=== PATIENT | female | born 1990 | race Caucasian/White ===

== ENCOUNTER 2017-01-23 09:51 | Emergency (ER) | payer BC, OTHER ==
[~2017-01-23] VITALS: Ht 160 cm; Wt 67.0 kg
[~2017-01-23 09:51] MED LIST: DICL75 PO; META800 PO
[2017-01-23 09:56] VITALS: BP 131/90; PULSE 78; RESP 16; TEMP 99.9; O2SAT 100
[2017-01-23] MEDS ORDERED: BIRTH CONTROL PILL (10:47)
[2017-01-23] MEDS ORDERED: IBUP-232 PO (11:31)
[2017-01-23] MEDS ORDERED: ROBA750T PO (11:31)
--- NOTE | 2017-01-23 11:38 | PD ---
HPI Chief Complaint: Musculoskeletal Complaint Time Seen by Provider: 11:14 Travel History International Travel<30 days: No Contact w/Intl Traveler<30days: No Traveled to known affect area: No History of Present Illness HPI 26-year-old female presents to the emergency room for evaluation of right-sided low back pain radiating down the right lower extremity for the past 2 days. Patient states she slipped on a wet floor at a restaurant and fell backwards landing directly on her buttocks. She denies any other injuries. She has been able to ambulate with pain since then. She's been taking [id number] ibuprofen without significant relief. She reports right thigh paresthesias that lasted the entire night after the night of injury but none since. No loss of bowel or bladder control or saddle anesthesia. No chronic medical conditions. PFSH Past Medical History Cancer: No Cardiovascular Problems: No Diabetes: No Glaucoma: No Hepatitis: No Hiatal Hernia: No Hypertension: No Respiratory: No Immunizations Current: Yes Thyroid Disease: No ?: Not LMP: DEPO Past Surgical History Abdominal Surgery: No Cardiac Surgery: No Ear Surgery: No Endocrine Surgery: No Eye Surgery: No Genitourinary Surgery: No Gynecologic Surgery: No Neurologic Surgery: No Oral Surgery: No Pacemaker: No Thoracic Surgery: No Tonsillectomy: Yes Other Surgery: No Social History Alcohol Use: Yes (OCCASSIONALLY) Tobacco Use: No Substance Use: No Allergies-Medications (Allergen,Severity, Reaction): Coded Allergies: amoxicillin (Unverified Allergy, Mild, HIVES, 01/23/17) Reported Meds & Prescriptions Reported Meds & Active Scripts Active Ibuprofen 600 Mg Tab 600 Mg PO Q8HR PRN Robaxin (Methocarbamol) 750 Mg Tab 750 Mg PO Q8HR Reported [ Control Pill] Review of Systems Except as stated in HPI: all other systems reviewed are Neg Physical Exam Narrative GENERAL: Well-nourished, well-developed female in no acute distress. Afebrile. Ambulatory. Moving easily on the bed. SKIN: Focused skin assessment warm/dry. No erythema or ecchymosis. HEAD: Normocephalic. EYES: No scleral icterus. No injection or drainage. NECK: Supple, trachea midline. No JVD or lymphadenopathy. CARDIOVASCULAR: Regular rate and rhythm without murmurs, gallops, or rubs. RESPIRATORY: Breath sounds equal bilaterally. No accessory muscle use. BACK: Nontender without obvious deformity. No CVA tenderness. Mild right-sided low back tenderness to palpation. 2+ patellar and Achilles reflexes are equal bilaterally. 2+ dorsalis pedis pulse in the right lower extremity. Full range of motion of the right leg. Data Data Last Documented VS Vital Signs Date Time Temp Pulse Resp B/P (MAP) Pulse Ox O2 Delivery O2 Flow Rate FiO2 01/23/17 09:56 99.9 78 16 131/90 (104) 100 MDM Medical Decision Making Medical Screen Exam Complete: Yes Emergency Medical Condition: Yes Medical Record Reviewed: Yes Differential Diagnosis Low back pain, sciatica, muscle spasm, muscle strain Narrative Course 26-year-old female presents to the emergency room for evaluation of right lower back pain radiating to the right lower extremity for the past 2 days. Pain started after slip and fall in which patient fell backwards landing directly on her buttocks. States she is mostly here because she works 2 jobs and it is painful to walk. She reports right thigh paresthesias the night of the accident but none since. She is able to ambulate but with some pain. No focal neurological deficits. No midline tenderness to palpation. Patient is ambulatory and moving easily on the bed. Right lower extremity patellar and Achilles reflexes are equal bilaterally. No indication for emergent imaging at this time. Patient was treated conservatively with ibuprofen and Robaxin. Told to follow-up with her primary care physician if symptoms persist for outpatient imaging or return for worsening symptoms. She understands and agrees to plan. Diagnosis Primary Impression: Sciatica Qualified Codes: M54.31 - Sciatica, right side Referrals: Primary Care Physician Departure Forms: Tests/Procedures, Work Release Enter return to work date: Jan 25, 2017 Additional Instructions: Rest and drink plenty of fluids. Take Robaxin as directed, as needed for pain. Take ibuprofen with food as directed, as needed for pain. Apply ice to the affected area for 20 minutes at a time, as needed for pain and swelling. Follow-up with a primary care physician. Return to the emergency room for worsening symptoms. Med/Other Pt SpecificInfo: Prescription(s) given Scripts Ibuprofen (Ibuprofen) 600 Mg Tab 600 MG PO Q8HR Y for PAIN, #21 TAB 0 Refills Prov: Joey Lane MD 01/23/17 Methocarbamol (Robaxin) 750 Mg Tab 750 MG PO Q8HR for Muscle Spasm, #15 TAB 0 Refills Prov: Joey Lane MD 01/23/17 Disposition: 01 DISCHARGE HOME Condition: Stable Doris Keyes Jan 23, 2017 11:38
== END 2017-01-23 11:49 | disposition home or self-care (01) ==
LOC: PHED 09:51 → PHEFT 11:49
DX: M54.31 Sciatica, right side (principal)
CPT/HCPCS: 99283

== ENCOUNTER 2017-03-23 22:30 | Observation (INO) | payer OTHER ==
[~2017-03-23] VITALS: Ht 160 cm; Wt 65.8 kg
[~2017-03-23 22:30] MED LIST changes: +BIRTH CONTROL PILL; -DICL75 PO; +IBUP-232 PO; -META800 PO; +ROBA750T PO
[2017-03-23 22:36] VITALS: BP 139/87; PULSE 86; RESP 16; TEMP 98.7; O2SAT 99
[2017-03-23] MEDS ORDERED: LIDOCAINE VISCOUS 2% SOLN 15 ML UDC PO ONE (23:00)
[2017-03-23] MEDS ORDERED: ALUMINUM/MAGNESIUM/SIMETH 30 ML CUP PO ONE (23:00)
[2017-03-23] MEDS ORDERED: SODIUM CHLORIDE 0.9% FLUSH 10 ML FLUSH IVF PRN (23:00)
[2017-03-23 23:01] VITALS: O2SAT 99
--- NOTE | 2017-03-23 23:06 | RADRPT ---
EXAM DATE/TIME: 03/23/2017 22:52 [facility] COMPARISON: No previous studies available for comparison. INDICATIONS : Chest pain today. MEDICAL HISTORY : None. SURGICAL HISTORY : ENCOUNTER: Initial ACUITY: 1 day PAIN SCORE: 7/10 LOCATION: Bilateral center of chest. FINDINGS: Portable AP view of the chest demonstrates a normal-sized cardiac silhouette. No effusion, consolidat ion, or pneumothorax is visualized. The bones and soft tissues demonstrate no acute abnormality. CONCLUSION: No acute cardiopulmonary abnormality is identified. Singh Cisse MD on March 23, 2017 at 23:04 Board Certified Radiologist. This report was verified electronically.
--- NOTE | 2017-03-23 23:07 | PD ---
HPI Chief Complaint: Chest Pain Time Seen by Provider: 22:42 Travel History International Travel<30 days: No Contact w/Intl Traveler<30days: No Traveled to known affect area: No History of Present Illness HPI 26-year-old female here for evaluation of epigastric abdominal pain that radiates up into her chest as well as right upper quadrant abdominal pain. Patient describes sharp/burning, worse with eating. The patient reports that she has had this pain for "a while," and has been on several different proton pump inhibitors without improvement in symptoms. She states that the pain became worse tonight than it usually is. She denies fevers or chills. No cough or hemoptysis. No known history of cardiac disease. No family history of cardiac disease. Both the patient's mom and father have history of gallbladder disease requiring cholecystectomy. PFSH Past Medical History Medical History: Denies Significant Hx Cancer: No Cardiovascular Problems: No Diabetes: No Glaucoma: No Hepatitis: No Hiatal Hernia: No Hypertension: No Respiratory: No Immunizations Current: Yes Thyroid Disease: No Tetanus Vaccination: Unknown Influenza Vaccination: No ?: Not LMP: depo no periods Past Surgical History Abdominal Surgery: No Cardiac Surgery: No Ear Surgery: No Endocrine Surgery: No Eye Surgery: No Genitourinary Surgery: No Gynecologic Surgery: No Neurologic Surgery: No Oral Surgery: No Pacemaker: No Thoracic Surgery: No Tonsillectomy: Yes Other Surgery: No Social History Alcohol Use: Yes (OCCASSIONALLY) Tobacco Use: No Substance Use: No Allergies-Medications (Allergen,Severity, Reaction): Coded Allergies: amoxicillin (Unverified Allergy, Mild, HIVES, 03/23/17) Reported Meds & Prescriptions Reported Meds & Active Scripts Active Reported [ Control Pill] Review of Systems Except as stated in HPI: all other systems reviewed are Neg Physical Exam Narrative GENERAL: Well-developed, well-nourished, comfortable, no apparent distress. SKIN: Focused skin assessment warm/dry. No rash. HEAD: Atraumatic. Normocephalic. EYES: Pupils equal and round. No scleral icterus. No injection or drainage. ENT: Mucous membranes pink and moist. NECK: Trachea midline. No JVD. CARDIOVASCULAR: Regular rate and rhythm. RESPIRATORY: No accessory muscle use. Clear to auscultation. Breath sounds equal bilaterally. GASTROINTESTINAL: Abdomen soft, nondistended. Mild epigastric and right upper quadrant tenderness without peritoneal signs. Rest of abdomen is soft and nontender. Normal bowel sounds. No hernias. MUSCULOSKELETAL: No obvious deformities. No clubbing. No cyanosis. No edema. NEUROLOGICAL: Awake and alert. No obvious cranial nerve deficits. Motor grossly within normal limits. Normal speech. PSYCHIATRIC: Appropriate mood and affect; insight and judgment normal. Data Data Last Documented VS Vital Signs Date Time Temp Pulse Resp B/P (MAP) Pulse Ox O2 Delivery O2 Flow Rate FiO2 03/24/17 00:20 94 16 126/77 (93) 97 Room Air 03/23/17 22:36 98.7 Orders Orders Electrocardiogram (03/23/17 22:49) Ckmb (Isoenzyme) Profile (03/23/17 22:49) Complete Blood Count With Diff (03/23/17 22:49) Comprehensive Metabolic Panel (03/23/17 22:49) Magnesium (Mg) (03/23/17 22:49) Prothrombin Time / Inr (Pt) (03/23/17 22:49) Act Partial Throm Time (Ptt) (03/23/17 22:49) Troponin I (03/23/17 22:49) Chest, Single Ap (03/23/17 22:49) Ecg Monitoring (03/23/17 22:49) Bilateral Bp Monitoring (03/23/17 22:49) Iv Access Insert/Monitor (03/23/17 22:49) Oximetry (03/23/17 22:49) Oxygen Administration (03/23/17 22:49) Sodium Chloride 0.9% Flush (Ns Flush) (03/23/17 23:00) Beta Hcg (Quant/Titer) (03/23/17 22:49) Lipase (03/23/17 22:49) Us Abdomen Gallbladder (03/23/17 ) Al-Mag Hy-Si 40-40-4 Mg/Ml Liq (Mag-Al P (03/23/17 23:00) Lidocaine 2% Viscous (Xylocaine 2% Visco (03/23/17 23:00) CKMB (03/23/17 22:58) CKMB% (03/23/17 22:58) Morphine Inj (Morphine Inj) (03/23/17 23:45) Ondansetron Inj (Zofran Inj) (03/23/17 23:45) Labs Laboratory Tests Test 03/23/17 22:58 White Blood Count 7.6 TH/MM3 Red Blood Count 4.31 MIL/MM3 Hemoglobin 13.1 GM/DL Hematocrit 39.2 % Mean Corpuscular Volume 91.0 FL Mean Corpuscular Hemoglobin 30.3 PG Mean Corpuscular Hemoglobin Concent 33.3 % Red Cell Distribution Width 11.7 % Platelet Count 262 TH/MM3 Mean Platelet Volume 8.2 FL Neutrophils (%) (Auto) 48.5 % Lymphocytes (%) (Auto) 44.3 % Monocytes (%) (Auto) 5.0 % Eosinophils (%) (Auto) 1.0 % Basophils (%) (Auto) 1.2 % Neutrophils # (Auto) 3.6 TH/MM3 Lymphocytes # (Auto) 3.4 TH/MM3 Monocytes # (Auto) 0.4 TH/MM3 Eosinophils # (Auto) 0.1 TH/MM3 Basophils # (Auto) 0.1 TH/MM3 CBC Comment DIFF FINAL Differential Comment Prothrombin Time 10.7 SEC Prothromb Time International Ratio 1.0 RATIO Activated Partial Thromboplast Time 27.6 SEC Blood Urea Nitrogen 16 MG/DL Creatinine 0.81 MG/DL Random Glucose 82 MG/DL Total Protein 7.7 GM/DL Albumin 4.2 GM/DL Calcium Level 8.9 MG/DL Magnesium Level 2.2 MG/DL Alkaline Phosphatase 54 U/L Aspartate Amino Transf (AST/SGOT) 13 U/L Alanine Aminotransferase (ALT/SGPT) 30 U/L Total Bilirubin 0.4 MG/DL Sodium Level 137 MEQ/L Potassium Level 3.7 MEQ/L Chloride Level 105 MEQ/L Carbon Dioxide Level 23.9 MEQ/L Anion Gap 8 MEQ/L Estimat Glomerular Filtration Rate 87 ML/MIN Total Creatine Kinase 113 U/L Creatine Kinase MB 0.5 NG/ML Troponin I LESS THAN 0.02 NG/ML Lipase 125 U/L Human Chorionic Gonadotropin, Quant LESS THAN 1 MIU/ML MDM Medical Decision Making Medical Screen Exam Complete: Yes Emergency Medical Condition: Yes Interpretation(s) EKG: Sinus, rate 65, normal axis, normal intervals, no acute ischemic abnormality. Differential Diagnosis GERD, peptic ulcer disease, Mann's esophagus, gastritis, pancreatitis, hepatobiliary disease, ACS, pneumothorax, pericarditis, PE less likely, Boerhaave syndrome unlikely Narrative Course Vital signs show heart rate 86, blood pressure 139/87, pulse ox 99% on room air , oral temp of 98.7F. CBC: WBC 7.6, hemoglobin 13.1, hematocrit 39.2, platelets 362. CMP is unremarkable. Cardiac enzymes are negative. Lipase is 125. Beta hCG is negative. Right upper quadrant ultrasound: CONCLUSION: 1. Cholelithiasis. However, there are no other objective imaging features to indicate acute cholecystitis. The round corner cutter operator did report a positive sonographic Briggs's sign but I cannot confirm this with my own examination. 2. Remainder of the examination is within normal limits. Patient and the patient's mom were made aware of all findings. She was given a dose of morphine and continues to complain of pain. Discussed options of discharging her home with outpatient follow-up with a general surgeon this week vs. admitting her for intractable pain and general surgery consultation as an inpatient. I told her that she was not guaranteed to have a cholecystectomy if she is admitted as there are no signs of cholecystitis. The patient tells me that her pain is severe enough that she cannot go on another day without definitive treatment. She prefers to be admitted so she can at least speak to a general surgeon in the morning about treatment options. As per a recent memorandum sent out by the cardiac monitor technician general surgeons, they do not want to be contacted emergently for cases such as this. Therefore, the patient will be admitted to the medical service for routine consultation with general surgery. Case discussed with hospitalist Dr Espinoza who will admit the patient to her service. Diagnosis Primary Impression: Intractable abdominal pain Additional Impressions: Cholelithiasis Qualified Codes: K80.20 - Calculus of gallbladder without cholecystitis without obstruction Biliary colic Bay Davis MD Mar 23, 2017 23:07
[2017-03-23 23:08] VITALS: BP 142/70
[2017-03-23 23:11] LABS: AUTOMATED NEUTROPHIL # 3.6 TH/MM3 (1.8-7.7); BASOPHIL # 0.1 TH/MM3 (0-0.2); BASOPHIL % 1.2 % (0.0-2.0); EOSINOPHIL # 0.1 TH/MM3 (0-0.4); HEMATOCRIT 39.2 % (35.0-46.0); HEMO FLAGS DIFF FINAL; LYMPH % 44.3 % (9.0-44.0); LYMPHOCYTE # 3.4 TH/MM3 (1.0-4.8); MEAN CORPUSCULAR HEMOGLOBIN 30.3 PG (27.0-34.0); MEAN CORPUSCULAR HGB CONC 33.3 % (32.0-36.0); NEUT % 48.5 % (16.0-70.0); PLATELET COUNT 262 TH/MM3 (150-450); RED BLOOD COUNT 4.31 MIL/MM3 (4.00-5.30); RED CELL DISTRIBUTION WIDTH 11.7 % (11.6-17.2); WHITE BLOOD COUNT 7.6 TH/MM3 (4.0-11.0)
[2017-03-23 23:19] LABS: CHLORIDE 105 MEQ/L (98-107); POTASSIUM 3.7 MEQ/L (3.5-5.1); SODIUM (NA) 137 MEQ/L (136-145)
[2017-03-23 23:23] LABS: ANION GAP 8 MEQ/L (5-15); BICARBONATE 23.9 MEQ/L (21.0-32.0); BLOOD UREA NITROGEN 16 MG/DL (7-18); MAGNESIUM 2.2 MG/DL (1.5-2.5)
[2017-03-23 23:26] LABS: ALT (GPT) 30 U/L (10-53); AST (GOT) 13 U/L (15-37); GLOMERULAR FILTRATION RATE 87 ML/MIN (>89)
[2017-03-23 23:27] LABS: APTT (PATIENT) 27.6 SEC (24.3-30.1); PROTHROMBIN TIME - PATIENT 10.7 SEC (9.8-11.6)
[2017-03-23 23:28] LABS: TOTAL BILIRUBIN ADULT 0.4 MG/DL (0.2-1.0)
[2017-03-23 23:29] LABS: ALKALINE PHOSPHATASE 54 U/L (45-117); CREATINE KINASE 113 U/L (26-192)
[2017-03-23 23:32] LABS: BETA HCG QUANT LESS THAN 1 MIU/ML (0-5)
--- NOTE | 2017-03-23 23:35 | RADRPT ---
EXAM DATE/TIME: 03/23/2017 23:13 [facility] COMPARISON: No previous studies available for comparison. INDICATIONS : Right upper quadrant pain. MEDICAL HISTORY : Right upper quadrant pain. SURGICAL HISTORY : Tonsillectomy. ENCOUNTER: Initial ACUITY: > 1 year PAIN SCORE: 7/10 LOCATION: Right upper quadrant MEASUREMENTS: LIVER: 16.8 cm length COMMON DUCT: Non-visualized RIGHT KIDNEY: 9.0 x 5.3 x 3.6 cm FINDINGS: LIVER: Normal echotexture without focal lesion or ductal dilatation. Main portal vein is patent with hepatop eta blood flow. COMMON DUCT: No intraluminal mass or stone visualized. GALLBLADDER: Gallbladder is filled with multiple stones. However, there is no wall thickening or pericholecystic f luid and gallbladder is not significantly distended. Cloth Reeler reports a positive sonographic Diane y's sign. PANCREAS: The visualized portions are within normal limits. RIGHT KIDNEY: No evidence of hydronephrosis, stone, or mass. CONCLUSION: 1. Cholelithiasis. However, there are no other objective imaging features to indicate acute cholecyst itis. The consumer relations specialist did report a positive sonographic Briggs's sign but I cannot confirm this with my own examination. 2. Remainder of the examination is within normal limits. Singh Cisse MD on March 23, 2017 at 23:32 Board Certified Radiologist. This report was verified electronically.
[2017-03-23 23:41] LABS: CKMB 0.5 NG/ML (0.5-3.6)
[2017-03-23] MEDS ORDERED: MORPHINE SULFATE 4 MG/ML INJ IV PUSH ONE (23:45)
[2017-03-23] MEDS ORDERED: ONDANSETRON HCL 4 MG/2 ML VIAL IV PUSH ONE (23:45)
[2017-03-24 00:20] VITALS: BP 126/77; PULSE 94; RESP 16; O2SAT 97
[2017-03-24] MEDS: SODIUM CHLOR 0.9% 1000 ML INJ 1,000 ML IV SCH ×2 (00:35→15:07)
[2017-03-24] MEDS ORDERED: SODIUM CHLORIDE 0.9% FLUSH 10 ML FLUSH IV FLUSH PRN (00:45)
[2017-03-24] MEDS ORDERED: NALOXONE HCL 0.4 MG/ML AMP IV PUSH PRN (00:45)
[2017-03-24 02:08] VITALS: BP 126/62; TEMP 98.6
[2017-03-24] MEDS: MORPHINE SULFATE 2 MG/ML INJ IV PUSH PRN ×3 (03:17→13:57)
[2017-03-24 04:00] VITALS: BP 118/60; PULSE 78; RESP 16; TEMP 97.8; O2SAT 98
--- NOTE | 2017-03-24 08:01 | PD.CONS ---
cc: Deng Tovar MD HPI Service General Surgery Consult Requested By Dr. Davis Reason for Consult Symptomatic cholelithiasis Primary Care Physician No Primary Care Physician History of Present Illness This is a 26 year old female with no past medical history who presents to the ED with RUQ pain. She reports that the pain is a sharp pain that radiates to her epigastric region. She rates it a 10/10. It is dulled by IV pain medications given in the ED. An ultrasound was obtained which shows cholelithiasis with no clear indication of acute cholecystitis. The patient has a normal white blood cell count. A General Surgery consultation has been requested for evaluation for laparoscopic cholecystectomy. Review of Systems Constitutional: COMPLAINS OF: Change in appetite Endocrine: DENIES: Polydipsia, Polyuria, Polyphagia Eyes: DENIES: Diplopia Ears, nose, mouth, throat: DENIES: Hearing loss Cardiovascular: DENIES: Palpitations Gastrointestinal: COMPLAINS OF: Abdominal pain, DENIES: Nausea, Vomiting Genitourinary: DENIES: Urinary incontinence Musculoskeletal: DENIES: Muscle aches Integumentary: DENIES: Abnormal pigmentation Hematologic/lymphatic: DENIES: Bruising Immunologic/allergic: DENIES: Eczema Neurologic: DENIES: Abnormal gait, Headache Psychiatric: DENIES: Confusion, Mood changes, Depression Past Family Social History Past Medical History None Past Surgical History Tonsillectomy [place] extraction Reported Medications None Allergies: Coded Allergies: amoxicillin (Unverified Allergy, Mild, HIVES, 03/24/17) Active Ordered Medications Current Medications Medications (Trade) Dose Ordered Sig/Cynthia Route Start Time Stop Time Status Last Admin Sodium Chloride 1,000 ml @ 100 mls/hr Q10H IV 03/24/17 00:35 03/24/17 00:35 (NS Flush) 2 ml UNSCH PRN IV FLUSH 03/24/17 00:45 (NS Flush) 2 ml BID IV FLUSH 03/24/17 09:00 (Narcan Inj) 0.4 mg UNSCH PRN IV PUSH 03/24/17 00:45 (Morphine Inj) 2 mg Q3H PRN IV PUSH 03/24/17 00:45 03/24/17 03:17 Family History Both Mother and Father had gallbladder removed Social History Denies tobacco use + ETOH--- occasional; no daily Denies illicit drug use 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 Physical Exam Vital Signs Vital Signs Date Time Temp Pulse Resp B/P (MAP) Pulse Ox O2 Delivery O2 Flow Rate FiO2 03/24/17 04:00 97.8 78 16 118/60 (79) 98 03/24/17 02:08 98.6 80 16 126/62 (83) 99 03/24/17 00:21 16 03/24/17 00:20 94 16 126/77 (93) 97 Room Air 03/23/17 23:08 142/70 (94) 03/23/17 23:01 99 Room Air 03/23/17 23:01 99 Room Air 03/23/17 22:36 98.7 86 16 139/87 (104) 99 Physical Exam GENERAL: Resting in bed in no acute distress. SKIN: Warm and dry. HEAD: Atraumatic. Normocephalic. EYES: Pupils equal and round. No scleral icterus. No injection or drainage. ENT: No nasal bleeding or discharge. Mucous membranes pink and moist. NECK: Trachea midline. CARDIOVASCULAR: Regular rate and rhythm. RESPIRATORY: No accessory muscle use. Clear to auscultation. Breath sounds equal bilaterally. GASTROINTESTINAL: Abdomen soft, nondistended; RUQ pain with palpation. No visible scars or hernias. MUSCULOSKELETAL: Extremities without clubbing, cyanosis, or edema. No obvious deformities. NEUROLOGICAL: Awake and alert. No obvious cranial nerve deficits. Motor grossly within normal limits. Five out of 5 muscle strength in the arms and legs. Normal speech. PSYCHIATRIC: Appropriate mood and affect; insight and judgment normal. Laboratory Laboratory Tests Test 03/23/17 22:58 White Blood Count 7.6 Red Blood Count 4.31 Hemoglobin 13.1 Hematocrit 39.2 Mean Corpuscular Volume 91.0 Mean Corpuscular Hemoglobin 30.3 Mean Corpuscular Hemoglobin Concent 33.3 Red Cell Distribution Width 11.7 Platelet Count 262 Mean Platelet Volume 8.2 Neutrophils (%) (Auto) 48.5 Lymphocytes (%) (Auto) 44.3 Monocytes (%) (Auto) 5.0 Eosinophils (%) (Auto) 1.0 Basophils (%) (Auto) 1.2 Neutrophils # (Auto) 3.6 Lymphocytes # (Auto) 3.4 Monocytes # (Auto) 0.4 Eosinophils # (Auto) 0.1 Basophils # (Auto) 0.1 CBC Comment DIFF FINAL Differential Comment Prothrombin Time 10.7 Prothromb Time International Ratio 1.0 Activated Partial Thromboplast Time 27.6 Blood Urea Nitrogen 16 Creatinine 0.81 Random Glucose 82 Total Protein 7.7 Albumin 4.2 Calcium Level 8.9 Magnesium Level 2.2 Alkaline Phosphatase 54 Aspartate Amino Transf (AST/SGOT) 13 Alanine Aminotransferase (ALT/SGPT) 30 Total Bilirubin 0.4 Sodium Level 137 Potassium Level 3.7 Chloride Level 105 Carbon Dioxide Level 23.9 Anion Gap 8 Estimat Glomerular Filtration Rate 87 Total Creatine Kinase 113 Creatine Kinase MB 0.5 Troponin I LESS THAN 0.02 Lipase 125 Human Chorionic Gonadotropin, Quant LESS THAN 1 Result Diagram: 03/25/17 0733 03/25/17 0733 Imaging Last 48 hours Impressions Chest X-Ray 03/23/17 2249 Signed Impressions: Service Date/Time: February 22:52 - CONCLUSION: No acute cardiopulmonary abnormality is identified. Singh Cisse MD Gall Bladder Ultrasound 03/23/17 0000 Signed Impressions: Service Date/Time: February 23:13 - CONCLUSION: 1. Cholelithiasis. However, there are no other objective imaging features to indicate acute cholecystitis. The violin mechanic did report a positive sonographic Briggs's sign but I cannot confirm this with my own examination. 2. Remainder of the examination is within normal limits. Singh Cisse MD Assessment and Plan Assessment and Plan 26 year old female with RUQ abdominal pain; symptomatic cholelithiasis -NPO -Plan for OR today for laparoscopic cholecystectomy -Obtain consents -Morphine IV for pain -Procedure was explained in detail as well as all questions answered -Thank you for this consult Discussed Condition With Dr. Guy Emery Attending Statement patient seen at bedside symptomatic cholelithiasis hx of several episodes in the past will plan for Lap derrick discussed with patient patient want to proceed Attestation The exam, history, and the medical decision-making described in the above note were completed with the assistance of the mid-level provider. I reviewed and agree with the findings presented. I attest that I had a [id number] encounter with the patient on the same day, and personally performed and documented my assessment and findings in the medical record. Marilynn James Mar 24, 2017 08:01 Deng Tovar MD Mar 27, 2017 21:46
[2017-03-24 08:32] VITALS: BP 113/60; PULSE 80; RESP 16; TEMP 96.7; O2SAT 98
[2017-03-24] MEDS: SODIUM CHLORIDE 0.9% FLUSH 10 ML FLUSH IV FLUSH SCH ×2 (08:51→21:07)
[2017-03-24] MEDS ORDERED: ACETAMINOPHEN 1000 MG/100 ML 100 ML IV ONE (10:44)
[2017-03-24] MEDS ORDERED: BUPIVACAINE/EPINEPHRINE 0.5% PF 30 ML VIAL ONE (10:46)
[2017-03-24] MEDS ORDERED: LIDOCAINE 1%/EPINEPHrine 1:100,000 SOLN 20 ML VIAL ONE (10:46)
[2017-03-24] MEDS ORDERED: SODIUM CHLORID 0.9% 500 ML IV PRN (11:30)
[2017-03-24] MEDS ORDERED: POVIDONE IODINE 5% (ANTISEPSIS KIT) 4 APPLICATIONS EACH NARE PRN (11:30)
[2017-03-24] MEDS ORDERED: CHLORHEXIDINE GLUCONATE 2 % 1 PACK (2 CLOTHS) TOPICAL PRN (11:30)
[2017-03-24] MEDS ORDERED: METOPROLOL TARTRATE 25 MG TAB PO PRN (11:30)
[2017-03-24] MEDS ORDERED: LACTATED RINGER'S 1000 ML IV PRN (11:30)
[2017-03-24] MEDS ORDERED: CIPROFLOXACIN 400 MG PREMIX 200 ML IV ONE (12:00)
[2017-03-24] MEDS ORDERED: ACETAMINOPHEN/HYDROcodone 325 MG/5 MG TAB PO PRN (12:15)
--- NOTE | 2017-03-24 12:18 | HHI.PR ---
Immediate Post Op Note Procedure Date: Mar 24, 2017 Pre Op Diagnosis: symptomatic cholelithiasis Post Op Diagnosis: same Surgeon: Deng Tovar MD Substance Abuse Rn(s): see or sheet Procedure: lap derrick Findings: gallbladder with stones Complications: none Specimen(s) removed: gallbladder Estimated blood loss: 5cc Anesthesia: General Drains: None Patient to: PACU Patient Condition: Good Deng Tovar MD Mar 24, 2017 12:18
[2017-03-24] MEDS ORDERED: MORPHINE SULFATE 8 MG/ML INJ ONE (13:38)
[2017-03-24] MEDS ORDERED: ONDANSETRON HCL 4 MG/2 ML VIAL ONE (14:13)
[2017-03-24] MEDS ORDERED: HYDROmorphone HCL PF 1 MG/ML VIAL ONE (14:14)
--- NOTE | 2017-03-24 15:28 | HHI.HP ---
[facility] No Primary Care Physician Admission Diagnosis Intractable abdominal pain, cholelithiasis, biliary colic Diagnoses: Chief Complaint: Abdominal pain Travel History International Travel<30 Days: No Contact w/Intl Traveler <30 Da: No Traveled to Known Affected Are: No History of Present Illness Patient's 26-year-old female who came to the hospital complaining of 10 out of 10 right upper quadrant pain we get into the epigastric. He was 10 out of 10 and improved by IV morphine. Patient had an ultrasound which showed cholelithiasis and the patient was admitted for cholecystectomy. This has been completed and the patient is now seen postoperatively with complaints of 8 out of 10 abdominal pain. Review of Systems Constitutional: DENIES: Diaphoretic episodes, Fatigue, Fever, Weight gain, Weight loss, Chills, Dizziness, Change in appetite, Night Sweats Endocrine: DENIES: Abnorml menstrual pattern, Heat/cold intolerance, Polydipsia , Polyuria, Polyphagia Eyes: DENIES: Blurred vision, Diplopia, Eye inflammation, Eye pain, Vision loss , Photosensitivity, Double Vision Ears, nose, mouth, throat: DENIES: Tinnitus, Hearing loss, Vertigo, Nasal discharge, Oral lesions, Throat pain, Hoarseness, Ear Pain, Running Nose, Epistaxis, Sinus Pain, Toothache, Odynophagia Respiratory: DENIES: Apneas, Cough, Snoring, Wheezing, Hemoptysis, Sputum production, Shortness of breath Cardiovascular: DENIES: Chest pain, Palpitations, Syncope, Dyspnea on Exertion , PND, Lower Extremity Edema, Orthopnea, Claudication Gastrointestinal: COMPLAINS OF: Abdominal pain Genitourinary: DENIES: Abnormal vaginal bleeding, Dysmenorrhea, Dyspareunia, Sexual dysfunction, Urinary frequency, Urinary incontinence, Urgency, Hematuria , Dysuria, Nocturia, Vaginal discharge Musculoskeletal: DENIES: Joint pain, Muscle aches, Stiffness, Joint Swelling, Back pain, Neck pain Integumentary: DENIES: Abnormal pigmentation, Pruritus, Rash, Nail changes, Breast masses, Breast skin changes, Nipple discharge Immunologic/allergic: DENIES: Eczema, Urticaria Neurologic: DENIES: Abnormal gait, Headache, Localized weakness, Paresthesias, Seizures, Speech Problems, Tremor, Poor Balance Psychiatric: DENIES: Anxiety, Confusion, Mood changes, Depression, Hallucinations, Agitation, Suicidal Ideation, Homicidal Ideation, Delusions Except as stated in HPI: all other systems reviewed are Neg Past Family Social History Past Medical History denies Past Surgical History Cholecystectomy 03/24/2017 Reported Medications Reviewed in the EMR, Depo-Provera shot Allergies: Coded Allergies: amoxicillin (Unverified Allergy, Mild, HIVES, 03/24/17) Active Ordered Medications Reviewed in the EMR Family History Mother had her gallbladder removed Social History No tobacco or any I will let you know alcohol dependency 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 [employer] Physical Exam Vital Signs Vital Signs Date Time Temp Pulse Resp B/P (MAP) Pulse Ox O2 Delivery O2 Flow Rate FiO2 03/24/17 14:36 18 03/24/17 13:58 83 20 138/85 (102) 100 03/24/17 13:43 89 20 140/90 (107) 99 03/24/17 13:38 88 20 130/75 (93) 100 Nasal Cannula 03/24/17 13:23 98.3 100 16 113/65 (81) 100 Nasal Cannula 3 03/24/17 10:53 96.7 80 16 113/60 (77) 98 03/24/17 08:32 96.7 80 16 113/60 (77) 98 03/24/17 04:00 97.8 78 16 118/60 (79) 98 03/24/17 02:08 98.6 80 16 126/62 (83) 99 03/24/17 00:21 16 03/24/17 00:20 94 16 126/77 (93) 97 Room Air 03/23/17 23:08 142/70 (94) 03/23/17 23:01 99 Room Air 03/23/17 23:01 99 Room Air 03/23/17 22:36 98.7 86 16 139/87 (104) 99 Physical Exam GENERAL: This is a well-nourished, well-developed patient, complaining of abdominal pain SKIN: No rashes, ecchymoses or lesions. Cool and dry. HEAD: Atraumatic. Normocephalic. No temporal or scalp tenderness. EYES: Pupils equal round and reactive. Extraocular motions intact. No scleral icterus. No injection or drainage. ENT: Nose without bleeding, purulent drainage or septal hematoma. Throat without erythema, tonsillar hypertrophy or exudate. Uvula midline. Airway patent. NECK: Trachea midline. No JVD or lymphadenopathy. Supple, nontender, no meningeal signs. CARDIOVASCULAR: tachycardia without murmurs, gallops, or rubs. RESPIRATORY: Clear to auscultation. Breath sounds equal bilaterally. No wheezes , rales, or rhonchi. Is complaining of abdominal pain GASTROINTESTINAL: Postop. No hepato-splenomegaly, or palpable masses. No guarding. MUSCULOSKELETAL: Extremities without clubbing, cyanosis, or edema. No joint tenderness, effusion, or edema noted. No calf tenderness. Negative Homans sign bilaterally. NEUROLOGICAL: Awake and alert. Cranial nerves II through XII intact. Motor and sensory grossly within normal limits. Five out of 5 muscle strength in all muscle groups. Normal speech. Laboratory Laboratory Tests Test 03/23/17 22:58 White Blood Count 7.6 Red Blood Count 4.31 Hemoglobin 13.1 Hematocrit 39.2 Mean Corpuscular Volume 91.0 Mean Corpuscular Hemoglobin 30.3 Mean Corpuscular Hemoglobin Concent 33.3 Red Cell Distribution Width 11.7 Platelet Count 262 Mean Platelet Volume 8.2 Neutrophils (%) (Auto) 48.5 Lymphocytes (%) (Auto) 44.3 Monocytes (%) (Auto) 5.0 Eosinophils (%) (Auto) 1.0 Basophils (%) (Auto) 1.2 Neutrophils # (Auto) 3.6 Lymphocytes # (Auto) 3.4 Monocytes # (Auto) 0.4 Eosinophils # (Auto) 0.1 Basophils # (Auto) 0.1 CBC Comment DIFF FINAL Differential Comment Prothrombin Time 10.7 Prothromb Time International Ratio 1.0 Activated Partial Thromboplast Time 27.6 Blood Urea Nitrogen 16 Creatinine 0.81 Random Glucose 82 Total Protein 7.7 Albumin 4.2 Calcium Level 8.9 Magnesium Level 2.2 Alkaline Phosphatase 54 Aspartate Amino Transf (AST/SGOT) 13 Alanine Aminotransferase (ALT/SGPT) 30 Total Bilirubin 0.4 Sodium Level 137 Potassium Level 3.7 Chloride Level 105 Carbon Dioxide Level 23.9 Anion Gap 8 Estimat Glomerular Filtration Rate 87 Total Creatine Kinase 113 Creatine Kinase MB 0.5 Troponin I LESS THAN 0.02 Lipase 125 Human Chorionic Gonadotropin, Quant LESS THAN 1 Result Diagram: 03/23/178 03/23/172257 Imaging Last Impressions Chest X-Ray 03/23/17 224 Signed Impressions: Service Date/Time: February 22:52 - CONCLUSION: No acute cardiopulmonary abnormality is identified. Singh Cisse MD Gall Bladder Ultrasound 03/23/17 0000 Signed Impressions: Service Date/Time: February 23:13 - CONCLUSION: 1. Cholelithiasis. However, there are no other objective imaging features to indicate acute cholecystitis. The box puller did report a positive sonographic Briggs's sign but I cannot confirm this with my own examination. 2. Remainder of the examination is within normal limits. MD Kodak Rogers VTE Risk Assessment Kodak VTE Risk Assessment: No/Low Risk (score <= 1) (y) Jani Risk Assessment Model Point Value = 1 Point Value = 2 Point Value = 3 Point Value = 5 Age 41-60 Minor surgery BMI > 25 kg/m2 Swollen legs Varicose veins or History of unexplained or recurrent spontaneous Oral contraceptives or hormone replacement Sepsis (< 1 month) Serious lung disease, including pneumonia (< 1 month) Abnormal pulmonary function Acute myocardial infarction Congestive heart failure (< 1 month) History of inflammatory bowel disease Medical patient at bed rest Age 61-74 Arthroscopic surgery Major open surgery (> 45 min) Laparoscopic surgery (> 45 min) Malignancy Confined to bed (> 72 hours) Immobilizing plaster cast Central venous access Age >= 75 History of VTE Family history of VTE Factor V Leiden Prothrombin [id number] Lupus anticoagulant Anticardiolipin antibodies Elevated serum homocysteine Heparin-induced thrombocytopenia Other congenital or acquired thrombophilia Stroke (< 1 month) Elective arthroplasty Hip, pelvis, or leg fracture Acute spinal cord injury (< 1 month) Prophylaxis Regimen Total Risk Factor Score Risk Level Prophylaxis Regimen 0-1 Low Early ambulation 2 Moderate Order ONE of the following: *Sequential Compression Device (SCD) *Heparin 5000 units SQ BID 3-4 Higher Order ONE of the following medications: *Heparin 5000 units SQ TID *Enoxaparin/Lovenox 40 mg SQ daily (WT < 150 kg, CrCl > 30 mL/min) *Enoxaparin/Lovenox 30 mg SQ daily (WT < 150 kg, CrCl > 10-29 mL/min) *Enoxaparin/Lovenox 30 mg SQ BID (WT < 150 kg, CrCl > 30 mL/min) AND/OR *Sequential Compression Device (SCD) 5 or more Highest Order ONE of the following medications: *Heparin 5000 units SQ TID (Preferred with Epidurals) *Enoxaparin/Lovenox 40 mg SQ daily (WT < 150 kg, CrCl > 30 mL/min) *Enoxaparin/Lovenox 30 mg SQ daily (WT < 150 kg, CrCl > 10-29 mL/min) *Enoxaparin/Lovenox 30 mg SQ BID (WT < 150 kg, CrCl > 30 mL/min) AND *Sequential Compression Device (SCD) Assessment and Plan Problem List: (1) Cholelithiasis ICD Code: K80.20 - Calculus of gallbladder without cholecystitis without obstruction Status: Acute Plan: status post laparoscopic cholecystectomy, continue overnight observation IV Dilaudid for pain IV antiemetics for nausea and lightheadedness diet as tolerated Discussed with patient and mother at bedside Also discussed with MedSurg nursing team Code Status full code Discussed Condition With Patient, mother, MedSurg nurse Problem Qualifiers (1) Cholelithiasis: Qualified Codes: K80.20 - Calculus of gallbladder without cholecystitis without obstruction Court Chamorro MD Mar 24, 2017 15:28
[2017-03-24] MEDS: HYDROmorphone HCL PF 2 MG/ML VIAL IVS PRN ×2 (15:35→21:05)
--- NOTE | 2017-03-24 16:05 | EKG ---
Date Performed: 03/23/2017 Time Performed: 23:02:53 PTAGE: 26 years EKG: Sinus rhythm NORMAL ECG NO PREVIOUS TRACING DOCTOR: Nallely Cifuentes Interpretating Date/Time 03/24/2017 16:05:02
--- NOTE | 2017-03-24 17:42 | MP ---
cc: TERRY TOVAR MD DATE OF SURGERY: 03/24/2017 PREOPERATIVE DIAGNOSIS: Symptomatic cholelithiasis. POSTOPERATIVE DIAGNOSIS: Symptomatic cholelithiasis. PROCEDURE PERFORMED: Laparoscopic cholecystectomy SURGEON: Dr. Terry Tovar. PLATE PAINTER: See OR sheet ANESTHESIA: GETA IV FLUIDS: 1000 cc. ESTIMATED BLOOD LOSS: 5 cc. DRAINS: None. COMPLICATIONS: None. WOUND CLASSIFICATION: Clean / contaminated. SPECIMEN: Gallbladder. INDICATIONS FOR THE PROCEDURE: The patient is a 26-year-old female who presents with acute on chronic onset of abdominal pain. The pain was in the right upper quadrant. The patient had an ultrasound showing gallstones. The patient had several episodes of this and further work up and decision for laparoscopic cholecystectomy. FINDINGS: The findings were a distended gallbladder and large gallstones. DESCRIPTION OF THE PROCEDURE IN DETAIL: The patient was taken to the operating suite and placed in supine position. He was prepped and draped in the usual sterile fashion after induction of general endotracheal anesthesia. Brief time-out was done stating correct patient, procedure and surgical site and all were in agreement with this. Attention was first directed to the umbilicus where a stab gage incision was made with an 11 blade. A Veress needle was placed and the abdomen insufflated to 15 mm pneumoperitoneum after confirmation of intraabdominal placement with saline drop test. The 5 mm visiport was used to enter the abdomen _on inspection no evidence of injury on inspection. Three other trocars were placed, one 12 mm epigastric followed by two 5 mm right subcostal trocars. The patient was placed in reverse Trendelenburg position and planed to the left. The gallbladder was identified. The fundus was grasped and retracted cephalad. A [place] was used to dissect out the cystic duct and cystic artery. These were noted to be the only structures going into the gallbladder. Two clips were placed proximal and one distal on both the cystic duct and the cystic artery and this was used to transect the cystic duct and cystic artery. A hook Bovie electrocautery was used to remove the gallbladder from the gallbladder fossa. Suction irrigation was used till the effluent was clear. Hemostasis was obtained in the gallbladder with Bovie electrocautery. The gallbladder was placed into an EndoCatch bag and removed via the epigastric port and sent to pathology. Next, trocars were removed and then the pneumoperitoneum was removed. The epigastric trocar was closed at the fascia in [id number] fashion using #0 Vicryl. 4-0 Monocryl was used for subcuticular sutures to all port sites and again local anesthetic injected. Dermabond was used to close the skin incisions. Sterile dressings were placed. The patient tolerated the procedure. No intraoperative complications. The patient was extubated and taken the post-anesthesia care unit. MD TAYLER Self/KASSI /4:48 PM /5:18 PM KENYA
[2017-03-24 17:51] VITALS: BP 135/68; PULSE 94; RESP 15; TEMP 98.5; O2SAT 97
[2017-03-24 20:00] VITALS: BP 127/68; PULSE 94; RESP 17; TEMP 98.3; O2SAT 99
[2017-03-24] MEDS: ONDANSETRON HCL 4 MG/2 ML VIAL IV PUSH PRN (21:06)
[2017-03-25] VITALS: BP 122/71; PULSE 89; RESP 18; TEMP 98; O2SAT 100
[2017-03-25] MEDS: SODIUM CHLOR 0.9% 1000 ML INJ 1,000 ML IV SCH ×2 (00:20→08:19)
[2017-03-25] MEDS: HYDROmorphone HCL PF 2 MG/ML VIAL IVS PRN ×2 (01:25→08:13)
[2017-03-25 08:00] VITALS: BP 137/85; PULSE 82; RESP 14; TEMP 97; O2SAT 99
[2017-03-25] MEDS: ONDANSETRON HCL 4 MG/2 ML VIAL IV PUSH PRN (08:12)
[2017-03-25 08:13] LABS: AUTOMATED NEUTROPHIL # 5.5 TH/MM3 (1.8-7.7); BASOPHIL % 0.4 % (0.0-2.0); EOSINOPHIL % 0.2 % (0.0-4.0); HEMATOCRIT 36.2 % (35.0-46.0); HEMO FLAGS DIFF FINAL; LYMPH % 23.5 % (9.0-44.0); LYMPHOCYTE # 1.8 TH/MM3 (1.0-4.8); MEAN CELL VOLUME 92.9 FL (80.0-100.0); MEAN CORPUSCULAR HEMOGLOBIN 30.7 PG (27.0-34.0); MONO % 5.6 % (0.0-8.0); NEUT % 70.3 % (16.0-70.0); PLATELET COUNT 228 TH/MM3 (150-450); RED BLOOD COUNT 3.89 MIL/MM3 (4.00-5.30); RED CELL DISTRIBUTION WIDTH 12.2 % (11.6-17.2); WHITE BLOOD COUNT 7.7 TH/MM3 (4.0-11.0)
--- NOTE | 2017-03-25 08:17 | HHI.PR ---
Subjective Subjective Notes no acute issues, tolerating some diet, mild nausea better with meds, no bm Objective Vitals/I&O Vital Signs Date Time Temp Pulse Resp B/P (MAP) Pulse Ox O2 Delivery O2 Flow Rate FiO2 03/25/17 00:00 98.0 89 18 122/71 (88) 100 03/24/17 14:50 Room Air 03/24/17 13:23 3 Labs Laboratory Tests Test 03/25/17 07:33 White Blood Count 7.7 Red Blood Count 3.89 Hemoglobin 11.9 Hematocrit 36.2 Mean Corpuscular Volume 92.9 Mean Corpuscular Hemoglobin 30.7 Mean Corpuscular Hemoglobin Concent 33.0 Red Cell Distribution Width 12.2 Platelet Count 228 Mean Platelet Volume 8.3 Neutrophils (%) (Auto) 70.3 Lymphocytes (%) (Auto) 23.5 Monocytes (%) (Auto) 5.6 Eosinophils (%) (Auto) 0.2 Basophils (%) (Auto) 0.4 Neutrophils # (Auto) 5.5 Lymphocytes # (Auto) 1.8 Monocytes # (Auto) 0.4 Eosinophils # (Auto) 0.0 Basophils # (Auto) 0.0 CBC Comment DIFF FINAL Differential Comment Radiology Last 48 hours Impressions Chest X-Ray 03/23/17 2249 Signed Impressions: Service Date/Time: February 22:52 - CONCLUSION: No acute cardiopulmonary abnormality is identified. Singh Cisse MD Gall Bladder Ultrasound 03/23/17 0000 Signed Impressions: Service Date/Time: February 23:13 - CONCLUSION: 1. Cholelithiasis. However, there are no other objective imaging features to indicate acute cholecystitis. The container coordinator did report a positive sonographic Briggs's sign but I cannot confirm this with my own examination. 2. Remainder of the examination is within normal limits. Singh Cisse MD Abdomen: Other (soft incisional tenderness) A/P Assessment and Plan POD 1 Lap derrick PLAN Reg diet meds for nausea po pain control oob d/c planning if nausea is better f//u with Dr. Tovar 1 week Deng Tovar MD Mar 25, 2017 08:16
[2017-03-25 08:26] LABS: CHLORIDE 107 MEQ/L (98-107); POTASSIUM 4.1 MEQ/L (3.5-5.1); SODIUM (NA) 138 MEQ/L (136-145)
[2017-03-25 08:47] LABS: ALKALINE PHOSPHATASE 46 U/L (45-117); ALT (GPT) 65 U/L (10-53); ANION GAP 7 MEQ/L (5-15); AST (GOT) 49 U/L (15-37); BICARBONATE 23.9 MEQ/L (21.0-32.0); BLOOD UREA NITROGEN 7 MG/DL (7-18); GLOMERULAR FILTRATION RATE 114 ML/MIN (>89); TOTAL BILIRUBIN ADULT 0.7 MG/DL (0.2-1.0)
[2017-03-25] MEDS: SODIUM CHLORIDE 0.9% FLUSH 10 ML FLUSH IV FLUSH SCH (09:00)
[2017-03-25 12:00] VITALS: BP 132/86; PULSE 79; RESP 16; TEMP 97.2; O2SAT 99
[2017-03-25] MEDS ORDERED: HYDR-3516 PO (12:45)
[2017-03-25] MEDS ORDERED: PROM25TA10 PO (12:45)
--- NOTE | 2017-03-25 12:46 | HHI.DCPOC ---
Discharge Care Plan Diagnosis: (1) Cholelithiasis Goals to Promote Your Health * To prevent worsening of your condition and complications * To maintain your health at the optimal level Directions to Meet Your Goals Take your medications as prescribed Follow your dietary instruction Follow activity as directed Keep your appointments as scheduled Take your immunizations and boosters as scheduled If your symptoms worsen call your PCP, if no PCP go to Urgent Care Center or Emergency Room Smoking is Dangerous to Your Health. Avoid second hand smoke Call the 24-hour hour crisis hotline for domestic abuse at Court Chamorro MD Mar 25, 2017 12:46
--- NOTE | 2017-03-25 12:47 | HHI.DS ---
Discharge Summary Admission Date Mar 24, 2017 at 00:47 Discharge Date: Mar 25, 2017 Admitting Diagnosis Intractable abdominal pain, cholelithiasis, biliary colic (1) Cholelithiasis ICD Code: K80.20 - Calculus of gallbladder without cholecystitis without obstruction Status: Acute Procedures Laparoscopic cholecystectomy Brief History - From Admission Patient's 26-year-old female who came to the hospital complaining of 10 out of 10 right upper quadrant pain we get into the epigastric. He was 10 out of 10 and improved by IV morphine. Patient had an ultrasound which showed cholelithiasis and the patient was admitted for cholecystectomy. This has been completed and the patient is now seen postoperatively with complaints of 8 out of 10 abdominal pain. CBC/BMP: 03/25/17 0733 03/25/17 0733 Significant Findings Laboratory Tests Test 03/23/17 22:58 03/25/17 07:33 Lymphocytes (%) (Auto) 44.3 % (9.0-44.0) Aspartate Amino Transf (AST/SGOT) 13 U/L (15-37) 49 U/L (15-37) Estimat Glomerular Filtration Rate 87 ML/MIN (>89) Troponin I LESS THAN 0.02 NG/ML Red Blood Count 3.89 MIL/MM3 (4.00-5.30) Neutrophils (%) (Auto) 70.3 % (16.0-70.0) Alanine Aminotransferase (ALT/SGPT) 65 U/L (10-53) Imaging Last Impressions Chest X-Ray 03/23/17 2249 Signed Impressions: Service Date/Time: February 22:52 - CONCLUSION: No acute cardiopulmonary abnormality is identified. Singh Cisse MD Gall Bladder Ultrasound 03/23/17 0000 Signed Impressions: Service Date/Time: February 23:13 - CONCLUSION: 1. Cholelithiasis. However, there are no other objective imaging features to indicate acute cholecystitis. The rod drawer did report a positive sonographic Briggs's sign but I cannot confirm this with my own examination. 2. Remainder of the examination is within normal limits. Singh Cisse MD PE at Discharge GENERAL: This is a well-nourished, well-developed patient, in no apparent distress. CARDIOVASCULAR: Regular rate and rhythm without murmurs, gallops, or rubs. RESPIRATORY: Clear to auscultation. Breath sounds equal bilaterally. No wheezes , rales, or rhonchi. GASTROINTESTINAL: Abdomen soft, non-tender, nondistended. Normal active bowel sounds MUSCULOSKELETAL: Extremities without clubbing, cyanosis, or edema. NEURO: Alert & Oriented x4 to person, place, time, situation. Moves all ext x4 Pt update on day of discharge Doing well today. Discharge plans discussed with patient, mom and nurse Hospital Course Patient seen and evaluate for acute biliary colic. She had an endoscopic cholecystectomy. This resolved the discomfort although she had some residual nausea postoperatively. She was discharged home after her diet was advanced and well tolerated and after her pain was well-controlled on oral medicines Pt Condition on Discharge: Good Discharge Disposition: Discharge Home Discharge Time: <= 30 minutes Discharge Instructions DIET: Follow Instructions for: As Tolerated, No Restrictions Activities you can perform: Regular-No Restrictions Follow up Referrals: Surgical - 1 Week with Deng Tovar MD New Medications: Promethazine (Phenergan) 25 Mg Tablet 25 MG PO Q6H PRN for NAUSEA OR VOMITING, #20 TAB 0 Refills Hydrocodone/Acetaminophen (Hydrocodone-Acetamin 5-325 mg) 5 Mg-325 Mg Tablet 2 TAB PO Q4H PRN for pain scale 1-5, #20 TAB Continued Medications: [ Control Pill] () Court Chamorro MD Mar 25, 2017 12:47
[2017-03-25] MEDS ORDERED: PERC5TAB12 PO (12:53)
== END 2017-03-25 13:09 | disposition home or self-care (01) ==
LOC: PHED 22:30 → PHEDA 03-24 00:47 → PH3B 03-24 02:28
PROVIDERS: ADMIT Hospitalist; ATTEND Hospitalist
DX: K80.10 Calculus of gallbladder with chronic cholecystitis without obstruction (principal); Z01.810 Encounter for preprocedural cardiovascular examination
CPT/HCPCS: 00790; 47562; 71010; 76705; 80053; 82550; 82552; 83690; 83735; 84484; 84702; 85025; 85610; 85730; 88304; 93005; 96361; 96374; 96375; 96376; 99285; G0378; J0131; J0744; J1170; J2270; J2405; J7030; J7120